=== PATIENT | male | born 1990 | race Two or more races ===

== ENCOUNTER 2023-01-24 09:43 | Emergency (ER) | payer OTHER ==
[~2023-01-24] VITALS: Ht 180.3 cm; Wt 65.8 kg
[2023-01-24] MEDS ORDERED: LIDOCAINE 1% INJ 50 ML MDV IJ ONE ×2 (12:43→13:00)
[2023-01-24] MEDS ORDERED: SULF1TAB48 PO (13:29)
[2023-01-24] MEDS ORDERED: CEPH500C2 PO (13:29)
[2023-01-24] MEDS ORDERED: IBUP-1955 PO (13:29)
[2023-01-24] MEDS ORDERED: KETOROLAC TROMETHAMINE INJ 30 MG/ML VIAL IM ONE (13:30)
[2023-01-24] MEDS ORDERED: KETOROLAC TROMETHAMINE 15 MG/ML VIAL ONE (13:40)
[2023-01-24 14:02] VITALS: BP 135/89; TEMP 99.3; O2SAT 96
== END 2023-01-24 14:03 | disposition home or self-care (01) ==
LOC: ER 09:51
DX: L03.115 Cellulitis of right lower limb (principal); L02.415 Cutaneous abscess of right lower limb; Z60.2 Problems related to living alone
CPT/HCPCS: 99285; 10060; 76882; 96372; J3490; A6403; J1885

== ENCOUNTER 2024-02-22 10:22 | Emergency (ER) | payer OTHER ==
[~2024-02-22] VITALS: Ht 180.3 cm; Wt 65.8 kg
[~2024-02-22 10:22] MED LIST: CEPH500C2 PO; IBUP-1955 PO; SULF1TAB48 PO
[2024-02-22 10:34] VITALS: BP 154/81; TEMP 98.7
[2024-02-22] MEDS ORDERED: IBUP-1953 PO (10:50)
[2024-02-22] MEDS ORDERED: SULF1TAB48 PO (10:50)
[2024-02-22] MEDS ORDERED: CEPH500T PO (10:50)
[2024-02-22] MEDS ORDERED: CEFTRIAXONE 1 G VIAL ONE (10:58)
[2024-02-22] MEDS ORDERED: IBUPROFEN 400 MG TABLET ONE (10:58)
[2024-02-22] MEDS ORDERED: LIDOCAINE /MPF 1% VIAL 5 ML VIAL ONE (10:58)
[2024-02-22] MEDS ORDERED: SULFAMETH/TRIMETH 800/160 MG 1 UDTAB TABLET ONE (11:03)
[2024-02-22] MEDS: CEFTRIAXONE 1 G VIAL IM ONE (11:10)
[2024-02-22] MEDS: SULFAMETH/TRIMETH 800/160 MG 1 UDTAB TABLET PO ONE (11:11)
[2024-02-22] MEDS: IBUPROFEN 400 MG TABLET PO ONE (11:11)
[2024-02-22 11:12] VITALS: O2SAT 98
== END 2024-02-22 11:12 | disposition home or self-care (01) ==
LOC: ER 10:26
DX: L03.012 Cellulitis of left finger (principal); F19.10 Other psychoactive substance abuse, uncomplicated; Z60.2 Problems related to living alone
CPT/HCPCS: 99283; 96372; J0696; J3490

== ENCOUNTER 2024-06-24 11:38 | Emergency (ER) | payer OTHER ==
[~2024-06-24] VITALS: Ht 180.3 cm; Wt 65.8 kg
[~2024-06-24 11:38] MED LIST changes: +CEPH500T PO; +IBUP-1953 PO
[2024-06-24] MEDS ORDERED: DOXY100C2 PO (12:03)
[2024-06-24] MEDS ORDERED: CEPH-570 PO (12:03)
[2024-06-24 12:29] VITALS: BP 127/75; TEMP 98.4; O2SAT 97
== END 2024-06-24 12:29 | disposition home or self-care (01) ==
LOC: ER 11:52
DX: L03.114 Cellulitis of left upper limb (principal); L02.414 Cutaneous abscess of left upper limb; Z60.2 Problems related to living alone